=== PATIENT | female | born 1990 | race Caucasian/White ===

== ENCOUNTER 2017-12-15 17:22 | Day surgery (SDC) | payer OTHER, SELFPAY ==
--- NOTE | 2017-12-15 18:04 | ER ---
Nurse's Notes [facility] Name: Josefina Junior Age: 26 yrs Sex: Female : 1990 Arrival Date: 12/15/2017 Time: 17:25 Bed Direct Admit Private MD: Diagnosis: Abnormal uterine and vaginal bleeding, unspecified Presentation: 12/15 17:47 Presenting complaint: Patient states: was sent from Dr. Weaver after having LEEP kt1 procedure, will go to OR, [facility] has called them and they are on their way. ED Course: 17:25 Patient arrived in ED. rg4 17:48 Inserted saline lock: 20 gauge in left antecubital area, using aseptic technique. Blood kt1 collected. 17:58 Kalpana Weaver MD is Hospitalizing Provider. kt1 Administered Medications: 17:55 Drug: Lactated Ringers Solution 1000 ml Route: IV; Rate: 125 ml/hr; Site: left rk2 antecubital; Outcome: 17:57 Admitted to OR accompanied by nurse, family with patient, via stretcher, with chart. kt1 17:57 Condition: stable 17:57 Instructed on the need for admit, Demonstrated understanding of instructions. 18:04 Decision to Hospitalize by Provider. kt1 18:04 Patient left the ED. kt1 Signatures: Felicia Lim, RN RN kt1 Maryann Arriola rg4 Romy Phelan RN RN rk2
[2017-12-15 18:05] LABS: Absolute Lymphocytes (CBC) 2.2 K/uL (0.7-4.9); Absolute Monocytes 0.6 K/uL (0.1-1.3); Absolute Neutrophil 6.8 K/uL (1.8-8.0); Basophils % 0.5 % (0-1.3); Eosinophils % 1.7 % (0-4.4); Hematocrit 42.4 % (36.0-45.0); MCV 92.3 fL (80-100); MPV 8.9 fL (7.6-11.3); Monocytes % 6.2 % (3.3-12.3); RBC Red Blood Cell Count 4.59 M/uL (3.86-4.86)
[2017-12-15] MEDS ORDERED: Ringers Lactate 1,000 ML IV ONE ×3 (18:10→19:39)
[2017-12-15] MEDS ORDERED: LIDOCAINE 1% W/EPI 1:100,000 MDV 50 ML VIAL ONE (18:24)
[2017-12-15] MEDS ORDERED: CEFAZOLIN/SWI 1gm 1 GM/10 ML SYR ONE (18:26)
[2017-12-15] MEDS ORDERED: SUCCINYLCHOLINE 20 MG/ML (10 ML) IV ONE (18:27)
[2017-12-15] MEDS ORDERED: ROCURONIUM 50 MG/5 ML VIAL IV ONE (18:29)
[2017-12-15] MEDS ORDERED: LIDOCAINE 1% MPF 5 ML VIAL ONE (18:29)
[2017-12-15] MEDS ORDERED: MIDAZOLAM HCL 2 MG/2 ML INJ ONE (18:29)
[2017-12-15] MEDS ORDERED: PROPOFOL 200 MG/20 ML VIAL IV ONE ×2 (18:29→18:58)
[2017-12-15] MEDS ORDERED: FENTANYL CITR 100 MCG/2 ML ONE (18:30)
[2017-12-15] MEDS ORDERED: ONDANSETRON 4 MG/2 ML VIAL ONE (18:59)
[2017-12-15] MEDS: MEPERIDINE HCL 50 MG/ML AMP ONE ×4 (19:11→19:45)
[2017-12-15] MEDS ORDERED: PROMETHAZINE 25 MG/ML VIAL ONE (19:57)
[2017-12-15] MEDS ORDERED: HYDROCODONE/APAP 5/325 MG TAB ONE (20:18)
--- NOTE | 2017-12-20 00:48 | OP ---
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 Preoperative Diagnosis: Bleeding post loop electrosurgical excision procedure for dysplasia. Postoperative Diagnosis: Bleeding post loop electrosurgical excision procedure for dysplasia. Procedure Performed: Exam under anesthesia, cauterization and suturing of the cervix with a modified Sturmdorf stitch. Anesthesia: General with LMA. Complications: No complications. Drains: The patient's condition is stable. Estimated Blood Loss: Minimal. Procedure In Detail: After informed consent was verified, the patient was taken back to the OR. She was placed in a supine fashion on the operating table. After general anesthesia was given. Speculum was used to expose the cervix. A Martínez in the posterior aspect as well as anterior aspect. Once the cervix was well visualized and all the clots were removed, 2-0 Vicryl stitches were placed w ith a CT-1 needle at 3 and 9 o'clock positions at the cervicovaginal junction and the sutures placed down. Sutures were tagged with hemostats and held on both sides. Then, after the clots were complet ankit removed and suction, then at the 2 o'clock position, there was a lot of raw tissue and bleeding, so here I did not deem cautery as the best technique for long-term control; however, cautery 40 pardo power was used to cauterize this edge, but overall needed sutures so that all the raw edges would st op bleeding. The 0 Vicryl stitch was placed all through the cervix, knot tied down in a modified Regan rmdorf running locked fashion. A circumferential stitch was done in an anticlockwise fashion, coming down all the way to the 2 o'clock position. Again here, the stitch was tied down. There was excell ent hemostasis at the end of this. There was minimal cautery that was used in the posterior aspect a s well as the external margin of the cervix to the ectocervix. The stay sutures and the hemostatic sutures were cut. All these instruments were removed. Instrumen t, needle, and sponge counts were done. Two rolls of vaginal packing that were placed in the office were removed before the start of the procedure. The patient tolerated the procedure well. She was g iven followup for 1 week in the office. The patient has history of XIOMARA 3. SK/MODL Voice ID: [id number] Report ID: [id number]
== END 2017-12-15 20:40 | disposition home health service (06) ==
LOC: ER 17:22 → OR 18:00
PROVIDERS: ATTEND Obstetrics & Gynecology
PROC: 0UQC7ZZ Repair Cervix, Via Natural or Artificial Opening (ICD-10-PCS; principal; 2017-12-15 18:10)
DX: N99.820 Postprocedural hemorrhage of a genitourinary system organ or structure following a genitourinary system procedure (principal); D06.9 Carcinoma in situ of cervix, unspecified; M06.9 Rheumatoid arthritis, unspecified; K21.9 Gastro-esophageal reflux disease without esophagitis; F32.9 Major depressive disorder, single episode, unspecified; F17.210 Nicotine dependence, cigarettes, uncomplicated; Z88.2 Allergy status to sulfonamides; Z80.3 Family history of malignant neoplasm of breast
CPT/HCPCS: 36415; 85025; 86850; 86900; 86901; J0330; J0690; J2175; J2250; J2405; J2550; J3010